=== PATIENT | male | born 1955 | race Caucasian/White ===

== ENCOUNTER 2017-02-20 10:04 | Emergency (ER) | payer SELFPAY ==
[2017-02-20 10:18] VITALS: BP 137/81; PULSE 54; TEMP 97.9; BMI 27.4
--- NOTE | 2017-02-20 11:09 | PDOC ---
Suture Removal/Wound Check HPI - History of Present Illness Chief Complaint: Suture/Staple Removal (other) Stated Complaint: REVISIT Time Seen by Provider: 02/20/17 10:23 History Source: Yes: Patient Exam Limitations: Yes: No Limitations Treated at: [facility] ED - Previous ED Treatment Type of procedure performed on last visit: Yes: Laceration Repair Tetanus Immunization: Yes: Up to Date Past History - Travel Traveled outside of the country in the last 30 days: No Close contact w/someone who was outside of country & ill: No - Past Medical History Allergies/Adverse Reactions: Allergies No Known Allergies Allergy (Verified 02/20/17 10:15) Home Medications: Ambulatory Orders Cephalexin [Keflex] 500 mg PO QID #28 capsule 02/14/17 General: Yes: no pertinent history - Social History Smoking Status: Never smoked Suture Removal/Wound Check PE - Physical Exam Laceration/Wound Check Symptoms: reports: None Current Severity Level: None (Issue and had sutures placed one week ago to the distal thumb, states is mildly painful but no fevers, redness, exudate or swelling) Maximum Severity Level: None *Review of Systems - Review of Systems Able to Perform ROS?: Yes Constitutional: Yes: Symptoms Reported, See HPI Respiratory: Yes: Symptoms reported Integumentary: Yes: Symptoms Reported, See HPI, Other (multiple sutures to distal left thumb intact but not completely approximated with slight movement at suture line. Will wait an additional 5 days for suture removal) *DC/Admit/Observation/Transfer Diagnosis at time of Disposition: Encounter for wound re-check - Discharge Dispostion Disposition: HOME Condition at time of disposition: Stable Admit: No - Patient Instructions Printed Discharge Instructions: DI for Suture Removal
== END 2017-02-20 11:12 | disposition home or self-care (01) ==
LOC: JERFT 10:04
DX: Z09 Encounter for follow-up examination after completed treatment for conditions other than malignant neoplasm (principal)
CPT/HCPCS: 99281-25